=== PATIENT | female | born 1955 | race Two or more races ===

== ENCOUNTER 2022-07-06 14:16 | Observation (INO) | payer OTHER ==
[2022-07-06 14:39] VITALS: BMI 24.7
[2022-07-06 17:46] LABS: HEMOGLOBIN 14.2 GM/dL (10.7-15.3); MCH 30.7 pg (25.7-33.7); MCHC 33.8 g/dl (32.0-36.0); MEAN CELL VOLUME 90.6 fl (80-96); MEAN PLT VOLUME 9.3 fl (7.5-11.1); PLATELET COUNT 251 10^3/uL (134-434); RBC 4.64 M/mm3 (3.60-5.2); RDW 13.9 % (11.6-15.6); WHITE BLOOD COUNT 8.7 K/mm3 (4.0-10.0)
[2022-07-06 18:15] LABS: CHLORIDE 108 mmol/L (98-107); SODIUM 143 mmol/L (136-145)
[2022-07-06 18:17] LABS: CALCIUM 9.6 mg/dL (8.5-10.1)
[2022-07-06 18:18] LABS: ANION GAP 6 MMOL/L (8-16); BLOOD UREA NITROGEN 15.9 mg/dL (7-18); CO2 30 mmol/L (21-32); GLUCOSE,RANDOM 114 mg/dL (74-106)
[2022-07-06 18:21] LABS: CREATININE 0.9 mg/dL (0.55-1.3); SGOT/AST 16 U/L (15-37); SGPT/ALT 25 U/L (13-61)
[2022-07-06 18:23] LABS: BILIRUBIN,TOTAL 0.4 mg/dL (0.2-1); TOT PROT 7.5 g/dl (6.4-8.2)
[2022-07-06 18:24] LABS: ALK PHOS 111 U/L (45-117)
[2022-07-06] MEDS ORDERED: ACETAMINOPHEN 325 MG TABLET (FP) PO PRN (20:39)
[2022-07-06] MEDS ORDERED: DOCUSATE SODIUM 100 MG CAPSULE (FP) PO PRN (20:39)
[2022-07-07] MEDS ORDERED: MECLIZINE HCL 25 MG TABLET (FP) PO ONE ×2 (00:25→15:22)
[2022-07-07] MEDS ORDERED: MECLIZINE HCL 25 MG TABLET (FP) ONE ×2 (00:42→16:06)
[2022-07-07] MEDS: INSULIN SLIDING SCALE (NOVOLOG) 1 VIAL SQ SCH ×3 (05:10→16:23)
[2022-07-07 06:03] VITALS: TEMP 97.9
[2022-07-07 08:04] LABS: BASO % 0.9 % (0-2.0); EOS % 3.9 % (0-4.5); HEMATOCRIT 39.2 % (32.4-45.2); MCH 30.4 pg (25.7-33.7); MCHC 33.3 g/dl (32.0-36.0); MEAN CELL VOLUME 91.3 fl (80-96); MEAN PLT VOLUME 10.1 fl (7.5-11.1); MONO % 8.8 % (3.8-10.2); NEUT % 57.4 % (42.8-82.8); PLATELET COUNT 209 10^3/uL (134-434); RBC 4.29 M/mm3 (3.60-5.2); RDW 13.9 % (11.6-15.6); WHITE BLOOD COUNT 6.9 K/mm3 (4.0-10.0)
[2022-07-07 08:21] LABS: BLOOD UREA NITROGEN 18.2 mg/dL (7-18)
[2022-07-07 08:24] LABS: CREATININE 0.8 mg/dL (0.55-1.3)
[2022-07-07 16:26] VITALS: BP 126/74; PULSE 82; RESP 18
== END 2022-07-07 16:26 | disposition home or self-care (01) ==
LOC: JER 14:16 → JERBED 19:15
PROVIDERS: ADMIT Internal Medicine; ATTEND Internal Medicine
DX: R55 Syncope and collapse (principal); R00.2 Palpitations; E11.9 Type 2 diabetes mellitus without complications; E78.5 Hyperlipidemia, unspecified; I10 Essential (primary) hypertension; E87.8 Other disorders of electrolyte and fluid balance, not elsewhere classified; E05.90 Thyrotoxicosis, unspecified without thyrotoxic crisis or storm; E03.9 Hypothyroidism, unspecified
CPT/HCPCS: 0241U-QW; 36415; 70450-TC; 71046-TC-FY; 80048; 80053; 82962; 84484; 85025; 85027; 93005; 93010; 99285-25; G0378

== ENCOUNTER 2022-12-19 11:59 | Emergency (ER) | payer OTHER ==
[2022-12-19 12:08] VITALS: TEMP 98.4; BMI 24.7
[2022-12-19] MEDS ORDERED: ALBUTEROL SO4 2.5/IPRATROPIUM 0.5 INH SOL 3 ML VIAL.NEB. NEB ONE ×2 (12:32→13:11)
[2022-12-19] MEDS ORDERED: SODIUM CHLORIDE 0.9% 500 ML INFUS.BAG IV ONE (12:32)
[2022-12-19 13:29] LABS: EOS % 2.7 % (0-4.5); HEMATOCRIT 41.3 % (32.4-45.2); HEMOGLOBIN 13.6 GM/dL (10.7-15.3); LYMPH % 22.4 % (8-40); MCH 29.2 pg (25.7-33.7); MEAN CELL VOLUME 88.5 fl (80-96); MEAN PLT VOLUME 9.4 fl (7.5-11.1); MONO % 7.8 % (3.8-10.2); NEUT % 66.1 % (42.8-82.8); PLATELET COUNT 217 10^3/uL (134-434); RBC 4.66 M/mm3 (3.60-5.2); RDW 13.5 % (11.6-15.6); WHITE BLOOD COUNT 7.1 K/mm3 (4.0-10.0)
[2022-12-19] MEDS ORDERED: predniSONE 20 MG TABLET (UD) PO ONE (13:30)
[2022-12-19] MEDS ORDERED: predniSONE 20 MG TABLET (UD) ONE (13:38)
[2022-12-19 13:50] LABS: POTASSIUM 4.3 mmol/L (3.5-5.1)
[2022-12-19 13:51] LABS: CALCIUM 9.6 mg/dL (8.5-10.1)
[2022-12-19 13:52] LABS: ALBUMIN 3.9 g/dl (3.4-5.0)
[2022-12-19 13:53] LABS: MAGNESIUM 2.1 mg/dL (1.8-2.4)
[2022-12-19 13:55] LABS: CREATININE 0.8 mg/dL (0.55-1.3)
[2022-12-19 13:57] LABS: BILIRUBIN,TOTAL 0.5 mg/dL (0.2-1); TOT PROT 7.3 g/dl (6.4-8.2)
[2022-12-19] MEDS ORDERED: ALBUTEROL SO4 HFA INHALER IH ONE ×2 (14:33→14:42)
[2022-12-19] MEDS ORDERED: AZITHROMYCIN 250 MG TABLET PO ONE (14:33)
[2022-12-19] MEDS ORDERED: AZITHROMYCIN 500 MG TABLET ONE (14:42)
[2022-12-19 14:48] VITALS: BP 117/72; PULSE 87; RESP 17
== END 2022-12-19 15:11 | disposition home or self-care (01) ==
LOC: JER 11:59
PROC: 3E0F7GC Introduction of Other Therapeutic Substance into Respiratory Tract, Via Natural or Artificial Opening (ICD-10-PCS; principal; 2022-12-19)
DX: R09.81 Nasal congestion (principal); R06.02 Shortness of breath; Z20.822 Contact with and (suspected) exposure to COVID-19
CPT/HCPCS: 0241U-QW; 36415; 71046-TC-FY; 80053; 82962; 83735; 84100; 84484; 85025; 93005; 93010; 99285-25

== ENCOUNTER → 2023-03-01 | Day surgery (SDC) | payer OTHER | END | disposition home or self-care (01) | LOC: JRADIR 09:21 | PROVIDERS: ATTEND Internal Medicine Endocrinology, Diabetes & Metabolism | PROC: 0G9H3ZX Drainage of Right Thyroid Gland Lobe, Percutaneous Approach, Diagnostic (ICD-10-PCS; principal; 2023-03-01) | DX: E04.1 Nontoxic single thyroid nodule (principal) | CPT/HCPCS: 10005; 76942; 88173; 88305-TC ==